=== PATIENT | female | born 2005 | race Caucasian/White ===

== ENCOUNTER 2024-06-05 17:10 | Inpatient (IN) | payer OTHER ==
[2024-06-05 18:21] LABS: THROAT:GRP A STREP NOT DETECTED (NOTDETECTED)
[2024-06-05] MEDS ORDERED: DEXAMETHASONE SOD PHOSPHATE 10 MG/1 ML VIAL ONE (19:42)
[2024-06-05] MEDS ORDERED: ACETAMINOPHEN INJECTION 100 ML ONE (19:42)
[2024-06-05] MEDS: ACETAMINOPHEN 1000 MG/100 ML BAG IVPB ONE (19:59)
[2024-06-05] MEDS: DEXAMETHASONE SOD PHOSPHATE 10 MG/1 ML VIAL IVPUSH ONE (19:59)
[2024-06-05] MEDS: SODIUM CHLORIDE 1,000 ML IV STA (20:00)
[2024-06-05 20:03] LABS: BASO % 0.4 % (0-2.0); EOS % 0.1 % (0-4.5); HEMATOCRIT 35.9 % (32.4-45.2); HEMOGLOBIN 11.2 GM/dL (10.7-15.3); LYMPH % 8.9 % (8-40); MCH 21.6 pg (25.7-33.7); MCHC 31.3 g/dl (32.0-36.0); MEAN PLT VOLUME 7.7 fl (7.5-11.1); MONO % 3.2 % (3.8-10.2); NEUT % 87.4 % (42.8-82.8); PLATELET COUNT 361 10^3/uL (134-434); RDW 17.9 % (11.6-15.6); WHITE BLOOD COUNT 11.9 K/mm3 (4.0-10.0)
[2024-06-05 20:28] LABS: POTASSIUM 3.9 mmol/L (3.5-5.1)
[2024-06-05 20:30] LABS: CALCIUM 9.7 mg/dL (8.5-10.1)
[2024-06-05 20:31] LABS: ALBUMIN 4.2 g/dl (3.4-5.0); BLOOD UREA NITROGEN 6.4 mg/dL (7-18)
[2024-06-05 20:34] LABS: CREATININE 0.7 mg/dL (0.55-1.3)
[2024-06-05 20:35] LABS: BILIRUBIN,TOTAL 0.9 mg/dL (0.2-1); TOT PROT 8.2 g/dl (6.4-8.2)
[2024-06-05 21:07] LABS: ANISOCYTOSIS 2+; MACROCYTOSIS 0; OVALOCYTE 1+
[2024-06-05] MEDS ORDERED: AMPICILLIN NA/SULBACTAM NA 3 GM/100 ML BAG IVPB ONE (22:35)
[2024-06-05] MEDS: AMPICILLIN NA/SULBACTAM NA 3 GM in SODIUM CHLORIDE 100 ML IVPB ONE (22:37)
[2024-06-06 03:24] VITALS: BMI 30.3
[2024-06-06] MEDS: AMPICILLIN NA/SULBACTAM NA 3 GM in SODIUM CHLORIDE 100 ML IVPB SCH (07:38)
[2024-06-06 09:02] LABS: HEMATOCRIT 32.3 % (32.4-45.2); HEMOGLOBIN 9.9 GM/dL (10.7-15.3); MCH 21.6 pg (25.7-33.7); MCHC 30.8 g/dl (32.0-36.0); MEAN CELL VOLUME 70.3 fl (80-96); MEAN PLT VOLUME 8.2 fl (7.5-11.1); PLATELET COUNT 343 10^3/uL (134-434); RDW 17.5 % (11.6-15.6)
[2024-06-06 09:24] LABS: CALCIUM 9.2 mg/dL (8.5-10.1)
[2024-06-06] MEDS: DEXAMETHASONE SOD PHOSPHATE 10 MG/1 ML VIAL IVPUSH SCH (09:24)
[2024-06-06] MEDS: ENOXAPARIN NA (PORCINE) 40 MG/0.4 ML DISP.SYRIN SQ SCH (09:24)
[2024-06-06 09:25] LABS: BLOOD UREA NITROGEN 6.8 mg/dL (7-18)
[2024-06-06 09:28] LABS: CREATININE 0.5 mg/dL (0.55-1.3)
[2024-06-07] MEDS ORDERED: ACETAMINOPHEN 1000 MG/100 ML BAG IVPB ONE (09:15)
[2024-06-07 10:09] LABS: HEMATOCRIT 30.9 % (32.4-45.2); HEMOGLOBIN 9.7 GM/dL (10.7-15.3); MCH 21.6 pg (25.7-33.7); MCHC 31.3 g/dl (32.0-36.0); MEAN CELL VOLUME 69.2 fl (80-96); MEAN PLT VOLUME 8.5 fl (7.5-11.1); PLATELET COUNT 332 10^3/uL (134-434); RBC 4.47 M/mm3 (3.60-5.2); RDW 17.3 % (11.6-15.6); WHITE BLOOD COUNT 16.1 K/mm3 (4.0-10.0)
[2024-06-07 10:31] LABS: POTASSIUM 3.8 mmol/L (3.5-5.1)
[2024-06-07 10:33] LABS: MAGNESIUM 2.1 mg/dL (1.8-2.4)
[2024-06-07 10:35] LABS: ALBUMIN 3.4 g/dl (3.4-5.0); BLOOD UREA NITROGEN 9.1 mg/dL (7-18); CALCIUM 8.5 mg/dL (8.5-10.1)
[2024-06-07 10:37] LABS: PHOSPHOROUS 2.2 mg/dL (2.5-4.9)
[2024-06-07 10:38] LABS: CREATININE 0.7 mg/dL (0.55-1.3)
[2024-06-07 10:40] LABS: BILIRUBIN,TOTAL 0.3 mg/dL (0.2-1); TOT PROT 7.2 g/dl (6.4-8.2)
[2024-06-07 10:55] LABS: ANISOCYTOSIS 2+; MACROCYTOSIS 0
[2024-06-07 12:09] VITALS: BP 103/55; PULSE 74; RESP 16; TEMP 98.7
== END 2024-06-07 12:32 | disposition home or self-care (01) | DRG 113 ==
LOC: JER 17:10 → JERFT 17:10 → JERBED 22:49 → OBSVTOIN 06-06 01:23 → J6S 06-06 01:52
PROVIDERS: ADMIT Internal Medicine; ATTEND Internal Medicine
DX: J36 Peritonsillar abscess (principal); D50.9 Iron deficiency anemia, unspecified
CPT/HCPCS: 0241U-QW; 36415; 70491-TC; 80048; 80053; 82728; 83540; 83550; 83735; 84100; 84466; 84703; 85025; 85027; 85045; 87651; 93005; 93010; 99285-25; G0378; J0131; J1100; Q9967